=== PATIENT | male | born 1950 | race Caucasian/White ===

== ENCOUNTER 2021-06-09 13:47 | Day surgery (SDC) | payer MEDICARE, BC ==
[2021-06-04 12:39] LABS: BASOPHILS # (AUTO) 0.1 X10'3 (0-0.2); BASOPHILS % (AUTO) 0.6 % (0-1); EOSINOPHILS # (AUTO) 0.2 X10'3 (0-0.9); EOSINOPHILS % (AUTO) 1.9 % (0-6); HEMATOCRIT 45.8 % (42.0-52.0); HEMOGLOBIN 15.1 g/dl (14.0-17.9); LYMPHOCYTES # (AUTO) 1.9 X10'3 (1.1-4.8); LYMPHOCYTES % (AUTO) 20.9 % (21-51); MEAN CORPUSCULAR HEMOGLOBIN 27.9 PG (27.0-31.0); MEAN CORPUSCULAR HGB CONC 33.1 g/dL (33.0-36.5); MEAN CORPUSCULAR VOLUME 84.3 FL (78-98); MEAN PLATELET VOLUME 7.9 FL (7.4-10.4); MONOCYTES # (AUTO) 0.9 X10'3 (0-0.9); MONOCYTES % (AUTO) 10.5 % (2-12); NEUTROPHILS # (AUTO) 5.9 X10'3 (1.8-7.7); NEUTROPHILS % (AUTO) 66.1 % (42-75); PLATELET COUNT 213 X10'3 (140-440); RED BLOOD COUNT 5.43 X10'6 (4.70-6.10); RED CELL DISTRIBUTION WIDTH 15.6 % (11.5-14.5); WHITE BLOOD COUNT 8.9 X10'3 (4.5-11.0)
[2021-06-04 12:49] LABS: ALBUMIN 3.5 G/DL (3.4-5.0); ANION GAP 8 (8-16); APTT 27 SECONDS (22-32); BLOOD UREA NITROGEN 13 MG/DL (7-18); BUN/CREATININE RATIO 16.7 (5.4-32.0); CALCIUM 8.3 MG/DL (8.5-10.1); CHLORIDE 106 MMOL/L (99-107); CREATININE 0.78 MG/DL (0.60-1.10); GLUCOSE 169 MG/DL (70-104); SODIUM 138 MMOL/L (135-145); TOTAL CARBON DIOXIDE 23.6 MMOL/L (24-32); eGFR > 90 ML/MIN
[2021-06-09] VITALS (9 sets, daily range): BP systolic 128–168; BP diastolic 57–92
[~2021-06-09] VITALS: Ht 170.2 cm; Wt 121.6 kg
[2021-06-09] MEDS ORDERED: iohexol 350MG/ML 100ml bottle IV ONE ×2 (13:55→15:15)
[2021-06-09] MEDS ORDERED: fentaNYL/PF 50MCG/1 ML 2ML syringe ONE (13:55)
[2021-06-09] MEDS ORDERED: midazolam 1 mg/ML 2ml injection ONE ×2 (13:55→14:46)
[2021-06-09] MEDS ORDERED: LIDOcaine 1% (10mg/ml)w/preservative inj. 20ml MDV ONE (13:55)
[2021-06-09] MEDS ORDERED: LORazepam 0.5 MG tablet PO PRN (14:05)
[2021-06-09] MEDS ORDERED: normal saline 1,000 ML IV SCH (14:05)
[2021-06-09] MEDS ORDERED: diphenhydrAMINE 25mg capsule PO PRN (14:05)
[2021-06-09] MEDS ORDERED: ASPI-955 (14:13)
[2021-06-09] MEDS ORDERED: CANA1TAB8 (14:13)
[2021-06-09] MEDS ORDERED: SEMA0.25 (14:13)
[2021-06-09] MEDS ORDERED: METO-539 PO (14:13)
[2021-06-09] MEDS ORDERED: iohexol 350 MG/ML 50ML vial IV ONE (15:05)
[2021-06-09] MEDS ORDERED: HYDROcodone/acetaminophen 10/325mg tab PO PRN (15:45)
[2021-06-09] MEDS ORDERED: HYDROcodone/acetaminophen 5mg/325mg tablet PO PRN (15:45)
== END 2021-06-09 18:50 | disposition home or self-care (01) ==
LOC: SSTAY O 13:47
PROVIDERS: ATTEND Internal Medicine Interventional Cardiology
DX: R94.39 Abnormal result of other cardiovascular function study (principal); R07.89 Other chest pain; I25.10 Atherosclerotic heart disease of native coronary artery without angina pectoris; I25.2 Old myocardial infarction; I10 Essential (primary) hypertension; E78.5 Hyperlipidemia, unspecified; E11.59 Type 2 diabetes mellitus with other circulatory complications; E66.9 Obesity, unspecified; Z68.41 Body mass index [BMI] 40.0-44.9, adult; F32.A Depression, unspecified; F17.211 Nicotine dependence, cigarettes, in remission; Z88.8 Allergy status to other drugs, medicaments and biological substances; Z95.1 Presence of aortocoronary bypass graft; Z79.899 Other long term (current) drug therapy; Z79.82 Long term (current) use of aspirin
CPT/HCPCS: 36415; 80048; 82948; 85025; 85610; 85730; 93005; 93459; 93567; 99152; 99153; C1760; C1769; J1644; J2250; J3010; J3490; Q9967; A4620; A6258